=== PATIENT | male | born 1985 | race Caucasian/White ===

== ENCOUNTER 2017-09-17 14:22 | Emergency (ER) | payer BC, OTHER ==
[~2017-09-17] VITALS: Ht 175.3 cm; Wt 77.9 kg
[~2017-09-17 14:22] MED LIST: BUPR1MIS PO; BUPR8MIS PO
[2017-09-17 14:30] VITALS: TEMP 37; Ht 175.3 cm; Wt 77.9 kg
[2017-09-17] MEDS ORDERED: ACETAMINOPHEN 500 MG TAB PO STA (14:53)
[2017-09-17] MEDS ORDERED: SODIUM CHLORIDE 0.9% 1000ML 2,000 ML IV STA (14:53)
[2017-09-17] MEDS ORDERED: DIPHTHERIA/TETANUS/PERTUSSIS 0.5 ML SYR/VIAL IM. ONE (15:00)
[2017-09-17] MEDS ORDERED: XYLOCAINE 1%/SOD BICARB 20 ML VIAL INFIL ONE (15:00)
--- NOTE | 2017-09-17 15:11 | EMERGENCY ROOM VISIT NOTE ---
History Report prepared by Katie: Char Muniz Under the Supervision of: Dr. Ebenezer Woodward M.D. 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 He notes he has a painful abscess on his LLQ that showed up yesterday. He reports he thought it was a pimple and tired popping it yesterday , but nothing happened. He notes his took his temperature and it was 100.6. The patient states he has never had an abscess before. Source of History: patient Onset: yesterday morning Position: abdomen (LLQ), other (global) Timing: worsening Associated Symptoms: + fevers (100.6), + chills Review of Systems See HPI for pertinent positives and negatives. A total of ten systems were reviewed and were otherwise negative. Past Medical & Surgical Medical Problems: (1) Asthma Family History Diabetes mellitus Heart disease High blood pressure Social History Smoking Status: Current Every Day Smoker Smokeless Tobacco Use: Yes Alcohol Use: none Housing Status: lives with family ( and 3 daughters) Current/Historical Medications Scheduled Buprenorphine Hcl-Naloxone Hcl (Suboxone 8-2 Mg), 8 MG PO BID Clindamycin Hcl (Clindamycin Hcl), 450 MG PO QID Saccharomyces Boulardii (Florastor), 1 CAP PO BID Allergies Coded Allergies: No Known Allergies (Unverified , 09/17/17) Physical Exam Vital Signs Date Time Temp Pulse Resp B/P (MAP) Pulse Ox O2 Delivery O2 Flow Rate FiO2 09/17/17 21:22 80 18 129/82 98 09/17/17 20:13 105 18 132/73 97 Room Air 09/17/17 17:55 116 09/17/17 17:53 117 18 112/74 98 Room Air 09/17/17 16:31 113 18 136/77 96 Room Air 09/17/17 15:07 113 09/17/17 14:53 112 09/17/17 14:30 37.0 119 18 132/79 98 Room Air Physical Exam GENERAL: Awake, alert, in no distress HENT: Normocephalic, atraumatic. Oropharynx unremarkable. Dry mucus membranes. EYES: Normal conjunctiva. Sclera non-icteric. NECK: Supple. No nuchal rigidity. FROM. No JVD. RESPIRATORY: Clear to auscultation. CARDIAC: Regular rate, normal rhythm. Extremities warm and well perfused. Pulses equal. ABDOMEN: Soft, non-distended. No tenderness to palpation. No rebound or guarding. No masses. Left lower quadrant/inguinal 10 by 3 cm area of induration and fluctuance with punctate ulcert, no warmth RECTAL: Deferred. MUSCULOSKELETAL: Chest examination reveals no tenderness. The back is symmetrical on inspection without obvious abnormality. There is no CVA tenderness to palpation. No joint edema. LOWER EXTREMITIES: Calves are equal size bilaterally and non-tender. No edema. No discoloration. NEURO: Normal sensorium. No sensory or motor deficits noted. SKIN: No rash or jaundice noted. Medical Decision & Procedures ER Provider Diagnostic Interpretation: Radiology results as stated below per my review and radiologist interpretation: CHEST ONE VIEW PORTABLE CLINICAL HISTORY: Fever. Sepsis. COMPARISON STUDY: Chest radiograph October 12, 2014. FINDINGS: Lung volumes are normal. Lungs are clear. No pneumothorax or pleural effusion is noted. Cardiac size is normal. Mediastinal contours are normal. No evidence for pulmonary edema. The appearance of the chest is unchanged. IMPRESSION: No acute cardiopulmonary findings. Electronically signed by: Jose Cash M.D. 09/17/2017 3:11 PM Dictated Date/Time: 09/17/2017 3:[address] OF THE ABDOMEN AND PELVIS WITH CONTRAST CLINICAL HISTORY: left lower abd abscess, r/o intraabd extension COMPARISON STUDY: Abdominal series October 12, 2014. TECHNIQUE: Following IV administration of 114 mL of Optiray-320, axial images of the abdomen and pelvis were obtained from the lung bases to the proximal femurs. Images were reviewed in the axial, sagittal, and coronal planes. IV contrast was administered without complication. A dose lowering technique was utilized adhering to the principles of ALARA. CT DOSE: 313.71 mGy.cm FINDINGS: The liver, spleen, adrenal glands, kidneys and pancreas are normal. There is no evidence for a bowel obstruction. No pneumatosis, free air or portal venous gas is present. There is no free fluid within the pelvis. There is extensive subcutaneous infiltration of the left lower quadrant extending into the left inguinal region. There is no soft tissue gas. There is associated skin thickening. There may be a 2.3 cm peripherally enhancing subcutaneous fluid collection which suggests a small developing abscess. No additional abscesses are identified. This suspected infectious process extends to the anterior abdominal wall without intra-abdominal extension. No suspicious osseous lesions are present. There is no hydronephrosis. There is no biliary or pancreatic ductal dilatation. There is a splenule. A few prominent left inguinal lymph nodes are likely reactive. IMPRESSION: Extensive left lower quadrant/inguinal subcutaneous infiltration consistent with cellulitis. This infectious process extends to the anterior abdominal wall without intra-abdominal extension. Possible associated 2.4 cm subcutaneous rim-enhancing fluid collection which suggests a developing abscess. Electronically signed by: Jose Cash M.D. 09/17/2017 7:48 PM Dictated Date/Time: 09/17/2017 7:41 PM Laboratory Results 09/17/17 15:20 Red Blood Count 4.79, Mean Corpuscular Volume 87.5, Mean Corpuscular Hemoglobin 30.3, Mean Corpuscular Hemoglobin Concent 34.6, Mean Platelet Volume 9.0, Neutrophils (%) (Auto) 76.7, Lymphocytes (%) (Auto) 13.1, Monocytes (%) (Auto) 9.4, Eosinophils (%) (Auto) 0.5, Basophils (%) (Auto) 0.1, Neutrophils # (Auto) 8.29, Lymphocytes # (Auto) 1.42, Monocytes # (Auto) 1.02, Eosinophils # (Auto) 0.05, Basophils # (Auto) 0.01 09/17/17 15:20 Test 09/17/17 15:20 09/17/17 19:00 White Blood Count 10.81 K/uL (4.8-10.8) Red Blood Count 4.79 M/uL (4.7-6.1) Hemoglobin 14.5 g/dL (14.0-18.0) Hematocrit 41.9 % (42-52) Mean Corpuscular Volume 87.5 fL (80-100) Mean Corpuscular Hemoglobin 30.3 pg (25-34) Mean Corpuscular Hemoglobin Concent 34.6 g/dl (32-36) Platelet Count 271 K/uL (130-400) Mean Platelet Volume 9.0 fL (7.4-10.4) Neutrophils (%) (Auto) 76.7 % Lymphocytes (%) (Auto) 13.1 % Monocytes (%) (Auto) 9.4 % Eosinophils (%) (Auto) 0.5 % Basophils (%) (Auto) 0.1 % Neutrophils # (Auto) 8.29 K/uL (1.4-6.5) Lymphocytes # (Auto) 1.42 K/uL (1.2-3.4) Monocytes # (Auto) 1.02 K/uL (0.11-0.59) Eosinophils # (Auto) 0.05 K/uL (0-0.5) Basophils # (Auto) 0.01 K/uL (0-0.2) RDW Standard Deviation 43.3 fL (36.4-46.3) RDW Coefficient of Variation 13.6 % (11.5-14.5) Immature Granulocyte % (Auto) 0.2 % Immature Granulocyte # (Auto) 0.02 K/uL (0.00-0.02) Anion Gap 6.0 mmol/L (3-11) Est Creatinine Clear Calc Drug Dose 131.4 ml/min Estimated GFR () 137.8 Estimated GFR (Non- 118.9 BUN/Creatinine Ratio 10.8 (10-20) Lactic Acid Level 0.9 mmol/L (0.4-2.0) Calcium Level 9.1 mg/dl (8.5-10.1) Total Bilirubin 0.5 mg/dl (0.2-1) Direct Bilirubin 0.2 mg/dl (0-0.2) Aspartate Amino Transf (AST/SGOT) 25 U/L (15-37) Alanine Aminotransferase (ALT/SGPT) 167 U/L (12-78) Alkaline Phosphatase 159 U/L (45-117) Total Protein 7.7 gm/dl (6.4-8.2) Albumin 3.7 gm/dl (3.4-5.0) Lipase 59 U/L (73-393) Urine Color YELLOW Urine Appearance CLEAR (CLEAR) Urine pH 7.5 (4.5-7.5) Urine Specific [place]mond[place] 1.032 (1.000-1.030) Urine Protein NEG (NEG) Urine Glucose (UA) NEG (NEG) Urine Ketones NEG (NEG) Urine Occult Blood NEG (NEG) Urine Nitrite NEG (NEG) Urine Bilirubin NEG (NEG) Urine Urobilinogen NEG (NEG) Urine Leukocyte Esterase NEG (NEG) Urine WBC (Auto) 1-5 /hpf (0-5) Urine RBC (Auto) 0-4 /hpf (0-4) Urine Hyaline Casts (Auto) 0 /lpf (0-5) Urine Epithelial Cells (Auto) 5-10 /lpf (0-5) Urine Bacteria (Auto) NEG (NEG) Laboratory results reviewed by me Medications Administered Medications (Trade) Dose Ordered Sig/Lorena Route Start Time Stop Time Status Last Admin Dose Admin Lidocaine HCl (Buffered Lidocaine 1% Inj) 20 ml ONE ONCE INFIL 09/17/17 15:00 09/17/17 15:01 DC 09/17/17 15:02 20 ML Diphtheria/ Pertussis/Tetanus Vacc (Adacel Inj) 0.5 ml ONCE ONCE IM. 09/17/17 15:00 09/17/17 15:01 DC 09/17/17 15:03 0.5 ML Sodium Chloride 2,000 ml @ 999 mls/hr Q2H1M STAT IV 09/17/17 14:53 09/17/17 16:53 DC 09/17/17 15:33 999 MLS/HR Acetaminophen (Tylenol Tab) 1,000 mg NOW STAT PO 09/17/17 14:53 09/17/17 14:57 DC 09/17/17 16:31 1,000 MG Sodium Chloride 1,000 ml @ 999 mls/hr Q1H1M STAT IV 09/17/17 17:44 09/17/17 18:44 DC 09/17/17 17:54 999 MLS/HR Clindamycin Phosphate (Cleocin 600mg/ 54ml D5W) 600 mg ONE ONCE IV 09/17/17 20:15 09/17/17 20:16 DC 09/17/17 20:15 600 MG Sodium Chloride 1,000 ml @ 999 mls/hr Q1H1M STAT IV 09/17/17 20:02 09/17/17 21:02 DC 09/17/17 20:13 999 MLS/HR Clindamycin HCl (Cleocin Cap) 450 mg ONE STAT PO 09/17/17 21:17 09/17/17 21:18 DC 09/17/17 21:17 450 MG Procedure Incision & Drainage Indication: Abscess. Location: Left Lower Quadrant/Inguinal Verbal consent was obtained after the risks and benefits were explained, including but not limited to bleeding, scarring, infection, pain, and bone/joint /nerve damage. At this time, the risks of the procedure are less than the risks of NOT performing the procedure. A time out was taken and the correct patient and site identified. The skin was prepped with betadine and a sterile field set. The wound was anesthetized with 7 ml of 1% lidocaine without epinephrine. The abscess cavity was entered with a number 11 blade x3 with 1 cm incisions over areas of induration and fluctuance with scant purulent material and otherwise sanguinous clots expressed. The wound was explored for foreign bodies and none found. Debridement was not performed. Detailed wound care instructions and signs and symptoms of worsening infection reviewed with the patient. No complications and the patient tolerated the procedure well. ED Course 1435: The patient was evaluated in room B3. A complete history and physical exam was performed. 2001: I reevaluated the patient at thei time and discussed results. He is leaving AMA. Medical Decision I reviewed the patient's past medical history, medications, and the nursing notes as described above. Differential diagnosis: Etiologies such as cellulitis, abscess, hernia, sepsis, pneumonia, bronchitis, urinary tract infection, viral syndrome, influenza, as well as others were entertained. Patient is a 31-year-old gentleman with a past medical history of hep C who presents emergency department with fevers and chills in the setting of noticing an abscess in his left lower abdomen inguinal area per hpi. On arrival, the patient is no acute distress, afebrile with heart rate 110s but vital signs otherwise stable. On exam the patient has a 3 x 10 cm area of induration and fluctuance with no overlying erythema or warmth. Bedside ultrasound demonstrates a fluid collection and phlegmon with similar dimensions, No evidence of peristalsis to suggest hernia. I&D performed per procedure note without only minimal purulent drainage and otherwise sanguinous clot expressed. Subsequently CT ordered to r/o deep extension and demonstrates extensive subcutaneous cellulitis with ?2.4 cm developing abscess. Patient was given IV dose of Clindamycin. WBC 10.8. Lactate wnl. Given extensive cellulitis with developing abscess I recommended to the patient admission however he persistent in that he did not want to be admitted. I explained the risk of leaving AMA and the patient expressed understanding. Patient was instructed to f/u surgery clinic next week for re-evaluation and to return back to the ED if he becomes worse or changes his mind. Given RX for PO clinda. d/c'd AMA per [facility]. Medication Reconcilliation Current Medication List: was personally reviewed by me Blood Pressure Screening Patient's blood pressure: Normal blood pressure Blood pressure disposition: Did not require urgent referral Impression Primary Impression: Cellulitis of left abdominal wall Scribe Attestation The scribe's documentation has been prepared under my direction and personally reviewed by me in its entirety. I confirm that the note above accurately reflects all work, treatment, procedures, and medical decision making performed by me. Departure Information Dispostion Against Medical Advice Prescriptions Saccharomyces Boulardii (Florastor) 250 Mg Cap 1 CAP PO BID for 14 Days, #28 CAP Prov: Ebenezer Woodward M.D. 09/17/17 Clindamycin Hcl (CLINDAMYCIN HCL) 150 Mg Cap 450 MG PO QID for 14 Days, #168 CAP Prov: Ebenezer Woodward M.D. 09/17/17 Referrals Kunal Stanton M.D. Patient Instructions ED Infec Skin Cellulitis, My [facility] Additional Instructions Please follow up with general surgery, Dr. Stanton, next week for re- evaluation. You likely an extensive abdominal wall cellulitis and is in the stage of early abscess formation. Given the extent of your skin infection it was recommended to you that you be admitted for IV antibiotics and monitoring. However, you did not want to be admitted and preferred to be discharged AGAINST MEDICAL ADVICE. Please note, by leaving AGAINST MEDICAL ADVICE you risk a worse condition, disability, and . However, we're open 24 hours a day and 7 days a week if you were to change your mind or have any worsening symptoms and should not hesitate to return. Acetaminophen for pain and fevers as needed. Clindamycin as directed. Florastor, probiotic, to help prevent antibiotic associated diarrhea. Drink plenty of fluids to ensure hydration. Return to the emergency department for worsening symptoms as described in the accompanying instructions.
[2017-09-17 15:46] LABS: BASO % 0.1 %; BASO ABS # 0.01 K/uL (0-0.2); EOS % 0.5 %; EOS ABS # 0.05 K/uL (0-0.5); HEMATOCRIT 41.9 % (42-52); HEMOGLOBIN 14.5 g/dL (14.0-18.0); IG# 0.02 K/uL (0.00-0.02); LYMPH % 13.1 %; LYMPH ABS # 1.42 K/uL (1.2-3.4); MEAN CELL VOLUME 87.5 fL (80-100); MEAN CORPUSCULAR HEMOGLOBIN 30.3 pg (25-34); MEAN CORPUSCULAR HGB CONC 34.6 g/dl (32-36); MONO % 9.4 %; MONO ABS # 1.02 K/uL (0.11-0.59); NEUT % 76.7 %; NEUT ABS # 8.29 K/uL (1.4-6.5); PLATELET COUNT 271 K/uL (130-400); RED CELL DISTRIBUTION WIDTH CV 13.6 % (11.5-14.5); RED CELL DISTRIBUTION WIDTH SD 43.3 fL (36.4-46.3); WHITE BLOOD COUNT 10.81 K/uL (4.8-10.8)
[2017-09-17 15:57] LABS: ALBUMIN 3.7 gm/dl (3.4-5.0); CALCIUM 9.1 mg/dl (8.5-10.1); CREATININE 0.83 mg/dl (0.60-1.40); POTASSIUM 3.8 mmol/L (3.5-5.1)
[2017-09-17 16:00] LABS: TOTAL PROTEIN 7.7 gm/dl (6.4-8.2)
[2017-09-17] MEDS ORDERED: SODIUM CHLORIDE 0.9% 1000ML 1,000 ML IV STA ×2 (17:44→20:02)
--- NOTE | 2017-09-17 19:50 | DIAGNOSTIC IMAGING REPORT ---
CT OF THE ABDOMEN AND PELVIS WITH CONTRAST CLINICAL HISTORY: left lower abd abscess, r/o intraabd extension COMPARISON STUDY: Abdominal series October 12, 2014. TECHNIQUE: Following IV administration of 114 mL of Optiray-320, axial images of the abdomen and pelvis were obtained from the lung bases to the proximal femurs. Images were reviewed in the axial, sagittal, and coronal planes. IV contrast was administered without complication. A dose lowering technique was utilized adhering to the principles of ALARA. CT DOSE: 313.71 mGy.cm FINDINGS: The liver, spleen, adrenal glands, kidneys and pancreas are normal. There is no evidence for a bowel obstruction. No pneumatosis, free air or portal venous gas is present. There is no free fluid within the pelvis. There is extensive subcutaneous infiltration of the left lower quadrant extending into the left inguinal region. There is no soft tissue gas. There is associated skin thickening. There may be a 2.3 cm peripherally enhancing subcutaneous fluid collection which suggests a small developing abscess. No additional abscesses are identified. This suspected infectious process extends to the anterior abdominal wall without intra-abdominal extension. No suspicious osseous lesions are present. There is no hydronephrosis. There is no biliary or pancreatic ductal dilatation. There is a splenule. A few prominent left inguinal lymph nodes are likely reactive. IMPRESSION: Extensive left lower quadrant/inguinal subcutaneous infiltration consistent with cellulitis. This infectious process extends to the anterior abdominal wall without intra-abdominal extension. Possible associated 2.4 cm subcutaneous rim-enhancing fluid collection which suggests a developing abscess. Electronically signed by: Jose Cash M.D. 09/17/2017 7:48 PM Dictated Date/Time: 09/17/2017 7:41 PM
[2017-09-17] MEDS ORDERED: CLINDAMYCIN 600 MG/54 ML D5W IV ONE (20:15)
[2017-09-17] MEDS ORDERED: CLIN150C15 PO (21:13)
[2017-09-17] MEDS ORDERED: SACC250C3 PO (21:13)
[2017-09-17] MEDS ORDERED: CLINDAMYCIN HCL 150 MG CAP PO STA (21:17)
[2017-09-17 21:22] VITALS: BP 129/82; PULSE 80; O2SAT 98
== END 2017-09-17 21:32 | disposition left against medical advice (07) ==
LOC: C.EDB 14:24
DX: L03.311 Cellulitis of abdominal wall (principal); J45.909 Unspecified asthma, uncomplicated; B19.20 Unspecified viral hepatitis C without hepatic coma; Z83.3 Family history of diabetes mellitus; F17.210 Nicotine dependence, cigarettes, uncomplicated; Z79.899 Other long term (current) drug therapy; Z23 Encounter for immunization